=== PATIENT | male | born 1990 | race Caucasian/White ===

== ENCOUNTER 2024-04-02 11:13 | Emergency (ER) | payer OTHER ==
[2024-04-02 11:35] VITALS: BMI 25.2
[2024-04-02] MEDS ORDERED: ACETAMINOPHEN 500 MG TABLET (FP) ONE (12:32)
[2024-04-02] MEDS ORDERED: KETOROLAC TROMETHAMINE 30 MG/1 ML VIAL ONE (12:32)
[2024-04-02] MEDS ORDERED: LIDOCAINE 4% PATCH TP ONE (12:32)
[2024-04-02] MEDS: KETOROLAC TROMETHAMINE 30 MG/1 ML VIAL IM ONE (12:39)
[2024-04-02] MEDS: LIDOCAINE 4% PATCH TP ONE (12:40)
[2024-04-02] MEDS: ACETAMINOPHEN 500 MG TABLET (FP) PO ONE (12:40)
[2024-04-02 14:42] VITALS: BP 118/82; PULSE 81; RESP 18; TEMP 98.2
[2024-04-02] MEDS ORDERED: LIDOCAINE PATCH REMOVAL MC SCH (22:00)
== END 2024-04-02 14:42 | disposition short-term general hospital (02) ==
LOC: JER 11:13
PROC: 3E0133Z Introduction of Anti-inflammatory into Subcutaneous Tissue, Percutaneous Approach (ICD-10-PCS; principal; 2024-04-02)
DX: M54.2 Cervicalgia (principal); R07.89 Other chest pain; V49.40XA Driver injured in collision with unspecified motor vehicles in traffic accident, initial encounter; Y92.410 Unspecified street and highway as the place of occurrence of the external cause
CPT/HCPCS: 71101-TC-RT-FY; 99284-25